=== PATIENT | female | born 2000 | race Caucasian/White ===

== ENCOUNTER 2018-10-06 10:32 | Emergency (ER) | payer OTHER | END 2018-10-06 11:05 | disposition home or self-care (01) | LOC: FTE 10:32 | DX: S01.81XA Laceration without foreign body of other part of head, initial encounter (principal); W22.8XXA Striking against or struck by other objects, initial encounter; Y92.002 Bathroom of unspecified non-institutional (private) residence as the place of occurrence of the external cause | CPT/HCPCS: 99282; Z7502 ==